=== PATIENT | male | born 1975 | race Caucasian/White ===

== ENCOUNTER 2016-11-21 12:43 | Emergency (ER) | payer OTHER ==
[2016-11-21] MEDS ORDERED: ALLEGRA (13:04)
== END 2016-11-21 15:01 | disposition home or self-care (01) ==
LOC: SED 12:43
DX: S09.90XA Unspecified injury of head, initial encounter (principal); S00.83XA Contusion of other part of head, initial encounter; Z23 Encounter for immunization; W22.8XXA Striking against or struck by other objects, initial encounter; Y92.69 Other specified industrial and construction area as the place of occurrence of the external cause; Y99.0 Civilian activity done for income or pay
CPT/HCPCS: 90471; 90715; 99283